=== PATIENT | female | born 1960 | race American Indian/Alaskan Native ===

== ENCOUNTER 2016-11-20 07:44 | Emergency (ER) | payer SELFPAY ==
[2016-11-20 08:38] VITALS: BP 188/101
--- NOTE | 2016-11-20 09:31 | Emergency Department Report ---
Stated Complaint: RT SHOULDER PAIN Time Seen by Provider: 11/20/16 09:24 - Exam Vital Signs: Vital Signs 11/20/16 08:37 Temperature 98.6 F Pulse Rate 80 Respiratory 18 Rate Blood Pressure 188/101 [Left] O2 Sat by Pulse 98 Oximetry MSE screening note: Focused history and physical exam performed. Due to findings the following was ordered: ED Disposition for MSE Condition: Stable
== END 2016-11-20 09:24 | disposition left against medical advice (07) ==
LOC: ED 07:44
DX: M25.511 Pain in right shoulder (principal); M79.609 Pain in unspecified limb; Z53.21 Procedure and treatment not carried out due to patient leaving prior to being seen by health care provider